=== PATIENT | male | born 1950 | race Two or more races ===

== ENCOUNTER 2016-11-18 14:47 | Emergency (ER) | payer MEDICAID, MEDICARE ==
[~2016-11-18] VITALS: Ht 154.9 cm; Wt 52.8 kg
[2016-11-18 14:48] VITALS: BP 93/57
[2016-11-18] MEDS ORDERED: SIMV20TA3 PO (15:22)
[2016-11-18] MEDS ORDERED: CANA300T PO (15:22)
[2016-11-18] MEDS ORDERED: GLIM4TAB2 PO (15:22)
[2016-11-18] MEDS ORDERED: LISI1TAB5 PO (15:22)
[2016-11-18] MEDS ORDERED: PIOG30TA3 PO (15:22)
[2016-11-18] MEDS ORDERED: METF10002 PO (15:22)
[2016-11-18] MEDS ORDERED: ASPI-496 PO (15:22)
== END 2016-11-18 16:10 | disposition home or self-care (01) ==
LOC: ED 15:52
DX: K02.9 Dental caries, unspecified (principal); T78.3XXA Angioneurotic edema, initial encounter; E11.65 Type 2 diabetes mellitus with hyperglycemia; I10 Essential (primary) hypertension; K08.89 Other specified disorders of teeth and supporting structures; E78.5 Hyperlipidemia, unspecified
CPT/HCPCS: 99283

== ENCOUNTER 2016-11-21 05:30 | Emergency (ER) | payer MEDICARE ==
[~2016-11-21] VITALS: Ht 152.4 cm; Wt 52.8 kg
[~2016-11-21 05:30] MED LIST: ASPI-496 PO; CANA300T PO; GLIM4TAB2 PO; LISI1TAB5 PO; METF10002 PO; PIOG30TA3 PO; SIMV20TA3 PO
[2016-11-21] MEDS ORDERED: SODIUM CHLORIDE 0.9% 1,000ML IVBOLUS ONE (07:00)
[2016-11-21] MEDS ORDERED: SODIUM CHLORIDE FLUSH 10ML SYR IVF ONE (07:00)
[2016-11-21 07:52] LABS: ASPARTATE AMINO TRANSFERASE 13 U/L (15-37); BLOOD UREA NITROGEN 22 mg/dL (7-18)
[2016-11-21 07:58] LABS: IS PT STATUS REG ER OR PRE ER? YES
[2016-11-21] MEDS ORDERED: OMNIPAQUE 350 MG/ML, 100ML BOTTLE ONE (08:51)
[2016-11-21 12:23] VITALS: BP 127/68
== END 2016-11-21 12:26 | disposition home or self-care (01) ==
LOC: ED 07:29
DX: R51 Headache (principal); R20.0 Anesthesia of skin; K08.89 Other specified disorders of teeth and supporting structures; I10 Essential (primary) hypertension; E78.5 Hyperlipidemia, unspecified; E11.65 Type 2 diabetes mellitus with hyperglycemia
CPT/HCPCS: 36415; 70450; 70496; 70498; 74022; 80053; 81003; 83605; 83880; 84484; 85025; 85610; 93005; 96360; 96361; 99285; J7030; Q9967